=== PATIENT | female | born 1930 | race Caucasian/White ===

== ENCOUNTER 2020-02-18 18:59 | Emergency (ER) | payer MEDICARE ==
--- NOTE | 2020-02-18 19:58 | ER Document Report ---
ED Fall - General Chief Complaint: Fall Injury Stated Complaint: FALL/FACIAL AND KNEE INJURIES Notes: 89-year-old female with past medical history of arthritis, macular degeneration, carpal tunnel and chronic knee pain presenting toda after a fall walking around her apartment complex. She was wearing flip-flops and stumbled over her flip- flops which caused her to fall head first onto concrete. She denies any headache. No loss of consciousness. Is alert and oriented. - Related data Allergies/Adverse Reactions: cefazolin [From Kefzol] Allergy (Verified 02/18/20 19:41) codeine Allergy (Verified 02/18/20 19:41) Physical Exam - Vital signs Vitals: Temp 98.3 F 02/18/20 19:39 Course - Vital Signs Vital signs: Temp Pulse Resp BP Pulse Ox 98.3 F 02/18/20 19:39
--- NOTE | 2020-02-18 20:15 | ER Document Report ---
ED Medical Screen (RME) - General Chief Complaint: Fall Injury Stated Complaint: FALL/FACIAL AND KNEE INJURIES Notes: 89-year-old female with past medical history of arthritis, macular degeneration, carpal tunnel and chronic knee pain presenting toda after a fall walking around her apartment complex. She was wearing flip-flops and stumbled over her flip- flops which caused her to fall head first onto concrete. She denies any headache. No loss of consciousness. No nausea. Is alert and oriented. Is not on any blood thinners. Also landed on her left hand and knee. Physical: Bruising and swelling under left eye. No step-offs or crepitus but area is very tender. Small abrasion to her left knee. Two abrasions to her left hand. I have greeted and performed a rapid initial assessment of this patient. A comprehesive ED assessment and evaluation of this patient, analysis of test results and completion of the medical decision-making process will be conducted by additional ED providers. - Related Data Allergies/Adverse Reactions: cefazolin [From Kefzol] Allergy (Verified 02/18/20 19:41) codeine Allergy (Verified 02/18/20 19:41) Home Medications: Ativan Past Medical History - Social History Frequency of alcohol use: None Drug Abuse: None Physical Exam - Vital signs Vitals: Temp 98.3 F 02/18/20 19:39 Course - Vital Signs Vital signs: Temp Pulse Resp BP Pulse Ox 98.3 F 02/18/20 19:39
--- NOTE | 2020-02-18 21:04 | RADIOLOGY REPORT (SQ) ---
EXAM DESCRIPTION: CT HEAD WITHOUT IV CONTRAST COMPLETED DATE/TME: 02/18/2020 20:15 CLINICAL HISTORY: 89 years, Female, fall COMPARISON: None. TECHNIQUE: Axial images without IV contrast. Sagittal coronal reconstruction. Images stored on PACS. All CT scanners at this facility use dose modulation, iterative reconstruction, and/or weight based dosing when appropriate to reduce radiation dose to as low as reasonably achievable (ALARA). FINDINGS: Normal size ventricles. Mild cortical atrophy. No acute intra-axial or extra-axial abnormality. Pituitary gland is not enlarged. Mastoid air cells and bony calvarium are unremarkable. IMPRESSION: Unremarkable noncontrast CT of the head. TECHNICAL DOCUMENTATION: Quality ID # [id number]: Final reports with documentation of one or more dose reduction techniques (e.g., Automated exposure control, adjustment of the mA and/or kV according to patient size, use of iterative reconstruction technique)
--- NOTE | 2020-02-18 21:09 | RADIOLOGY REPORT (SQ) ---
EXAM DESCRIPTION: CT MAXILLOFACIAL WITHOUT IV CONTRAST COMPLETED DATE/TME: 02/18/2020 20:15 CLINICAL HISTORY: 89 years, Female, fall on concrete COMPARISON: None. TECHNIQUE: Axial images without IV contrast. Sagittal coronal reconstruction. Images stored on PACS. All CT scanners at this facility use dose modulation, iterative reconstruction, and/or weight based dosing when appropriate to reduce radiation dose to as low as reasonably achievable (ALARA). FINDINGS: No evidence for maxillofacial bone fracture. Paranasal sinuses without acute findings. Incidental right lupe bullosa. Nasal cavities unremarkable. No suspicious intraorbital abnormality. Suggestive minimal soft tissue scalp thickening in the bifrontal region. IMPRESSION: No significant acute findings in the facial bones. TECHNICAL DOCUMENTATION: Quality ID # [id number]: Final reports with documentation of one or more dose reduction techniques (e.g., Automated exposure control, adjustment of the mA and/or kV according to patient size, use of iterative reconstruction technique)
--- NOTE | 2020-02-18 21:10 | RADIOLOGY REPORT (SQ) ---
CLINICAL INDICATION: fall. Pain. TECHNIQUE: 3 view(s) were obtained of the right hand. 3 view(s) were obtained of the left hand. COMPARISON: None. FINDINGS: Right: No acute displaced fracture is identified of the hand. Alignment appears anatomic. Osteoarthritis. Surrounding soft tissues are unremarkable. Left: No acute displaced fracture is identified of the hand. Alignment appears anatomic. Osteoarthritis. Old posttraumatic change to the radius. Soft tissue swelling. IMPRESSION: No evidence of acute displaced fracture of either hand.
--- NOTE | 2020-02-18 21:25 | RADIOLOGY REPORT (SQ) ---
EXAM DESCRIPTION: XR KNEE 3 VIEWS COMPLETED DATE/TME: 02/18/2020 20:16 CLINICAL HISTORY: 89 years, Female, fall COMPARISON: None. NUMBER OF VIEWS: 3 TECHNIQUE: Frontal, lateral, and sunrise projections were obtained LIMITATIONS: None. FINDINGS: Tricompartment osteoarthrosis is noted, designated by joint space narrowing and marginal osteophyte summation. This is most pronounced within the lateral compartment where there is moderate degenerative change. A few loose bodies are noted about the knee joint, particularly about the posterior aspect as well as within the suprapatellar recess. No acute fracture or dislocation is evident. No degenerative joint effusion. IMPRESSION: No acute osseous anomaly. Tricompartmental osteoarthrosis with loose bodies. copyright 2010 [employer]- All Rights Reserved
--- NOTE | 2020-02-19 01:55 | ER Document Report ---
ED Fall - General Chief Complaint: Fall Injury Stated Complaint: FALL/FACIAL AND KNEE INJURIES Notes: 89-year-old female with past medical history of arthritis, macular degeneration, carpal tunnel and chronic knee pain presents today after she fell on concrete after she tripped on her flip-flops. She states that her face hit the concrete. It was a fall from standing. Patient denies trying to brace herself prior to the fall. She has a few abrasions of her left arm. She also has bruising under her left eye. It is tender. She also has a few abrasions on her left pinky and left hand. She also has a small abrasion on her left knee. She denies any loss of consciousness. Denies any headache or vision changes. States that she was not syncopal or presyncopal. She remembers the incident. - Related data Allergies/Adverse Reactions: cefazolin [From Kefzol] Allergy (Verified 02/18/20 19:41) codeine Allergy (Verified 02/18/20 19:41) Home Medications: Ativan Past Medical History - Social History Smoking Status: Never Smoker Frequency of alcohol use: None Drug Abuse: None Family History: Reviewed & Not Pertinent Review of Systems - Review of Systems Constitutional: No symptoms reported EENT: No symptoms reported Cardiovascular: No symptoms reported Respiratory: No symptoms reported Gastrointestinal: No symptoms reported Genitourinary: No symptoms reported Female Genitourinary: No symptoms reported Musculoskeletal: See HPI Skin: See HPI Hematologic/Lymphatic: No symptoms reported Neurological/Psychological: No symptoms reported Physical Exam - Vital signs Vitals: Temp 98.3 F 02/18/20 19:39 Interpretation: Hypertensive - Notes Notes: Adult General: GENERAL: Alert, interacts well. No acute distress HEAD: Normocephalic, atraumatic EYES: Pupils equal, round and reactive to light. Extraocular movements intact. ENT: Airway patent. Nares patent. Bruising and swelling under left eye. NECK: Full range of motion. Supple. Trachea midline. No lymphadenopathy. LUNGS: Nontender chest wall. HEART: Regular rate and rhythm. No murmurs, rubs or gallops. ABDOMEN: Soft, nontender. GENITOURINARY: Deferred EXTREMITIES: Moves all 4 extremities spontaneously. No edema, normal radial and dorsal pedis pulses bilaterally. No cyanosis. BACK: No cervical, thoracic, lumbar midline tenderness. No saddle anesthesia, normal distal neurovascular exam. Moves all extremities with full range of motion. NEUROLOGICAL: Alert and oriented x3. Normal speech. Cranial nerves II through XII grossly intact. Strength 5/ 5 in all extremities. PSYCH: Normal affect, normal mood. SKIN: Superficial abrasion under left eye, superficial abrasions on left hand. Superficial abrasions on left knee. Warm, dry, normal turgor. Course - Re-evaluation Re-evalutation: 02/19/20 01: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 xray hand shows osteoarthritis, no fractures. Her knee xray shows osteoarthritis with few loose bodies. No fractures noted. I discussed these findings with the patient. Wounds were cleaned prior to arrival to ER. 02/19/20 01:55 Patient has full range of motion of her extremities. She denies any headache. She is neurologically intact. The fall was caused by her tripping over her flip flop. She had no preceding light headness, dizziness or chest pain. I am comfortable discharging the patient as her imaging is unremarkable. She can take Tylenol for her pain. Keep the wounds clean and dry. Recommend cleaning the wound twice a day with soap and water. I also discussed that I recommend she follow-up with her primary care provider. I also recommend avoiding the use of flip-flops as this was the cause of her fall. She can return to the emergency department for worsening symptoms or development of new symptoms. Patient acknowledges and verbalizes understanding of instructions and plan. All question s answered. - Vital Signs Vital signs: Temp Pulse Resp BP Pulse Ox 98.4 F 68 16 146/68 H 97 02/19/20 01:24 02/19/20 01:24 02/18/20 19:40 02/19/20 01:24 02/19/20 01:24 Discharge - Discharge Clinical Impression: Abrasion Fall Qualifiers: Encounter type: initial encounter Qualified Code(s): W19.XXXA - Unspecified fall, initial encounter Condition: Stable Disposition: HOME, SELF-CARE Additional Instructions: Your imaging has been unremarkable in the emergency department. No fractures are noted. 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 Please keep the abrasions clean and dry. Recommend cleaning with soap and water twice a day. Please continue to monitor for signs of any infection. Please follow-up with your primary care provider. Please return to the emergency department for worsening symptoms or development of new symptoms.
[2020-02-19 05:25] VITALS: BP 110/72
== END 2020-02-19 02:20 | disposition home or self-care (01) ==
LOC: ER 18:59
DX: S80.212A Abrasion, left knee, initial encounter (principal); S60.512A Abrasion of left hand, initial encounter; S00.81XA Abrasion of other part of head, initial encounter; S40.812A Abrasion of left upper arm, initial encounter; W01.10XA Fall on same level from slipping, tripping and stumbling with subsequent striking against unspecified object, initial encounter; G89.29 Other chronic pain
CPT/HCPCS: 70450; 70486; 99284